=== PATIENT | male | born 1955 | race Caucasian/White ===

== ENCOUNTER 2021-06-15 08:30 | Inpatient (IN) | payer OTHER ==
[~2021-06-15] VITALS: Ht 172.7 cm; Wt 72.2 kg
[~2021-06-15 08:30] MED LIST: ALBU90OI INH; ALPR.25 PO; ALPR.5 PO; ALPR1; ALPR1 PO; AMLO10 PO; Ativan1 MG PO; BENZ100A PO; CEPH500 PO; CYCL10 PO; Crutch1 EACH MISC; Cyclobenzaprine5 MG PO; ENAL5; GUAN1; HYDACE10B; HYDACE5 PO; HYDGUAL120 PO; HYDMOR2 PO; Hydrochloroth12.5 MG PO; IBUHYD PO; IBUP600 PO; IBUP800 PO; LISI20 PO; LISI5 PO; METO100ER; METO100ER PO; METO25ER PO; METO50 PO; METO50ER; MORP30 PO; MORP30ER; MORPHINE SULFATE; MSIR; Naprosyn500 MG PO; OXYACE5T PO; PANT40; PROM25 PO; Prednisone20 MG PO; RXHYDACE PO; RXLORA1 PO; RXOXYACE PO; Sulindac200 MG PO; TRIHYD253A; Toprol Xl25 MG PO; VICODIN; Xanax1 MG PO; Zanaflex4 M1; Zithromax250 MG PO
[2021-06-15 08:45] LABS: Calcium, Ionized (POC) 1.05 mmol/L (1.10-1.46); Chloride (POC) 102 mmol/L (98-108); Glucose (ISTAT POC) 133 mg/dL (70-99); Hemoglobin (POC) 16.7 g/dL (13.5-17.5); Potassium (POC) 4.3 mmol/L (3.5-5.5); Sodium (POC) 137 mmol/L (135-148); Total CO2 (POC) 27 mmol/L (21-32)
[2021-06-15 09:00] LABS: BASOPHILS ABSOLUTE AUTO 0.02 K/mm3 (0.00-0.23); BASOPHILS PERCENT AUTO 0 % (0-2); EOSINOPHILS ABSOLUTE AUTO 0.07 K/mm3 (0.00-0.68); EOSINOPHILS PERCENT AUTO 1 % (0-6); Hemoglobin 17.2 g/dL (13.5-17.5); IMMATURE GRAN ABSOLUTE AUTO 0.02 K/mm3 (0.00-0.10); IMMATURE GRAN PERCENT AUTO 0 % (0-1); LYMPHOCYTES ABSOLUTE AUTO 2.13 K/mm3 (0.84-5.20); LYMPHOCYTES PERCENT AUTO 28 % (21-46); MONOCYTES ABSOLUTE AUTO 0.39 K/mm3 (0.16-1.47); MONOCYTES PERCENT AUTO 5 % (4-13); Mean Corpuscular HGB 31.6 pg (26.0-34.0); Mean Corpuscular HGB Conc 35.8 g/dL (31.5-36.5); Mean Corpuscular Volume 88 fL (80-100); Mean Platelet Volume 9.9 fL (9.1-12.4); NEUTROPHILS ABSOLUTE AUTO 4.92 K/mm3 (1.96-9.15); NEUTROPHILS PERCENT AUTO 65 % (41-73); Platelet Count 286 K/mm3 (150-400); RDW Coefficient Variation 12.5 % (11.7-14.2); RDW Standard Deviation 40.1 fL (35.1-46.3); Red Blood Cell Count 5.44 M/mm3 (4.30-5.90); White Blood Cell Count 7.55 K/mm3 (4.00-11.30)
[2021-06-15 09:35] LABS: Alanine Aminotransfer (ALT/SGP 32 U/L (12-78); Albumin, Blood 3.4 g/dL (3.4-5.0); Albumin/Globulin Ratio 0.8 (0.8-1.8); Alk Phos 122 U/L (50-136); Anion Gap 6 mmol/L (6-16); Aspartate Aminotrans (AST/SGOT 30 U/L (12-37); Bilirubin, Total 0.8 mg/dL (0.1-1.0); Blood Urea Nitrogen 11 mg/dL (8-24); Bun/Creatinine Ratio 11.1 (12.0-20.0); CHOL/HDL RATIO 3.8; CO2, Blood 26 mmol/L (21-32); Calcium, Blood 8.9 mg/dL (8.5-10.1); Chloride, Blood 104 mmol/L (98-108); Cholesterol 186 mg/dL (50-200); Creatinine, Blood 0.99 mg/dL (0.60-1.20); Globulin, Blood 4.5 g/dL (2.2-4.0); Glomerular Filtration Rate >60 (60-); Glucose, Blood 135 mg/dL (70-99); HDL Cholesterol 49 mg/dL (>39); LDL/HDL RATIO 2.3; Low Density Lipoprotein Chol 114 mg/dL (0-110); Potassium, Blood 4.2 mmol/L (3.5-5.5); Sodium, Blood 136 mmol/L (136-145); Total Protein, Blood 7.9 g/dL (6.4-8.2); Triglycerides 114 mg/dL (30-160); Troponin I <0.015 ng/mL (0.000-0.040); Very Low Density Lipoprot Chol 22 mg/dL (6-32)
[2021-06-15 09:38] LABS: Influenza A, PCR NEGATIVE (NEGATIVE); Influenza B, PCR NEGATIVE (NEGATIVE); Resp Syncytial Virus, PCR NEGATIVE (NEGATIVE); SARS-Cov-2 (COVID-19) PCR, MMC NEGATIVE (NEGATIVE)
--- NOTE | 2021-06-15 11:53 | NUR ---
PT ARRIVED TO ICU FROM DIETICIAN AT 1048. RIGHT TR BAND IN PLACE INFLATED TO 12MLS. NO BLEEDING NOTED TO INTERTION SITE. PT DENIES ANY CHEST PAIN OR SOB AT THIS TIME.
--- NOTE | 2021-06-15 12:18 | NUR ---
TR BAND REMOVED WITHOUT COMPLICATION OR BLEEDING
--- NOTE | 2021-06-15 12:28 | NUR ---
PROVIDER NOTIFICATION: Dr. Pitts notified of pt's hypertension. See new orders.
[2021-06-15 13:04] LABS: U Amphetamine Screen Not Detected; U Barbituate Screen Not Detected; U Benzodiazapine Screen Not Detected; U Buprenorphine Screen Not Detected; U Cannabinoids Screen DETECTED; U Cocaine Screen Not Detected; U Methadone Screen Not Detected; U Methamphetamine Screen DETECTED; U Opiates Screen DETECTED; U Oxycodone Screen Not Detected; U Phencyclidine Screen Not Detected; U Propoxyphene Screen Not Detected
--- NOTE | 2021-06-15 17:41 | NUR ---
SHIFT SUMMARY: Pt recovered from PCI well. TR band was discontinued without complication or rebleeding. Pt denies any chest pain or shortness of breath. He does report some ongoing sharp right arm/elbow pain for which he recieved PRN tylenol. No new EKG changes. Pt given lisinopril for hypertension. He is using urinal has stood at bedside independantly. Takeing PO well.
--- NOTE | 2021-06-15 20:00 | NUR ---
ASSUMED CARE OF DONALD, DURING REPORT PT WENT IN TO A 36 BEAT RUN OF [place]. HE DENIED ANY PAIN OR CHANGE IN FEELING. HE WAS STARTLED BY THE PRESENCE OF PEOPLE RUSHING TO HIS ROOM. DEEP AWARE OF THE RUN AND STATED THAT IT WAS TO BE EXPECTED WITH HIS REPERFUSION. PT SLEEPY, CLOSES EYES BRIEFLY WHEN UNDISTURBED. PT WITH NO DRIPS OR LINES AT THIS TIME.
[2021-06-16 03:41] LABS: Hematocrit 43.3 % (37.0-53.0); Hemoglobin 14.9 g/dL (13.5-17.5); Mean Corpuscular HGB 31.2 pg (26.0-34.0); Mean Corpuscular HGB Conc 34.4 g/dL (31.5-36.5); Mean Corpuscular Volume 91 fL (80-100); Mean Platelet Volume 9.6 fL (9.1-12.4); Platelet Count 241 K/mm3 (150-400); RDW Coefficient Variation 12.7 % (11.7-14.2); RDW Standard Deviation 42.1 fL (35.1-46.3); Red Blood Cell Count 4.78 M/mm3 (4.30-5.90); White Blood Cell Count 8.53 K/mm3 (4.00-11.30)
[2021-06-16 04:17] LABS: Anion Gap 8 mmol/L (6-16); Blood Urea Nitrogen 16 mg/dL (8-24); Bun/Creatinine Ratio 16.8 (12.0-20.0); CO2, Blood 24 mmol/L (21-32); Calcium, Blood 8.1 mg/dL (8.5-10.1); Chloride, Blood 105 mmol/L (98-108); Creatinine, Blood 0.95 mg/dL (0.60-1.20); Glomerular Filtration Rate >60 (60-); Glucose, Blood 108 mg/dL (70-99); Potassium, Blood 3.8 mmol/L (3.5-5.5); Sodium, Blood 137 mmol/L (136-145)
--- NOTE | 2021-06-16 05:37 | NUR ---
DONALD HAS BEEN WITHOUT ANY COMPLAINTS, HE HAS BEEN SLEEPING ON AND OFF T/O THE NIGHT. HE AWAKENS WHEN SPOKEN TO. OTHERWISE REMAINS STABLE, HEART RATE HI 50'S TO 60'S, SBP 120-140'S, SATS 97% ON ROOM AIR. WILL CONTINUE TO MONITOR AND REPORT WHEN ABLE.
--- NOTE | 2021-06-16 07:15 | NUR ---
Assumed care of pt at 0700 with Corinne LIANG. Pt alert, answers questions, follows commands, verbalizes needs. Pleasant and cooperative with care. HR 55-65, sinus. BP stable. Right TR site, free of hematoma. Color, sensation, pulses, capillary refill equal BUE.
[2021-06-16 10:01] LABS: Creatine Kinase MB Index 10.4 (0.0-4.0)
[2021-06-16 10:11] LABS: Troponin I 31.4 ng/mL (0.000-0.040)
--- NOTE | 2021-06-16 12:19 | NUR ---
DR TRUJILLO IN TO SEE PATIENT Provider states plan for pt to transfer as PCU status today and potential for discharge tomorrow. Provider inquires about pt's social history and he states 1/2 smoker per day and marijuana uses. Denies methamphetamine use and when asked, states he hasn't used methamphetamine in over a year. Provider discusses tox screen results with patient and educates pt about discharge plan and dicharge meds - including anticoagulants. Pt states understanding.
--- NOTE | 2021-06-16 14:21 | NUR ---
Patient transfer to PCU 20. Report given to Tia RN. Pt transporting via wheelchair accompanied by SOFIA Sauer. Chart, meds, and belongings transferred with patient.
--- NOTE | 2021-06-16 15:00 | NUR ---
Josephine of care from ICU. No changes noted since AM assessment. Pt in no apparent distress at this time. Will continue to monitor.
[2021-06-16 15:51] LABS: Creatine Kinase MB 33.5 ng/mL (0.0-3.6); Creatine Kinase MB Index 7.4 (0.0-4.0)
[2021-06-16 15:57] LABS: Troponin I 21.8 ng/mL (0.000-0.040)
[2021-06-16 21:43] LABS: Creatine Kinase MB 19.8 ng/mL (0.0-3.6)
[2021-06-16 21:48] LABS: Troponin I 20.1 ng/mL (0.000-0.040)
--- NOTE | 2021-06-17 05:45 | NUR ---
SHIFT SUMMARY ASSUMED CARE OF PT AT 1900. PT IS A/OX4. HEART SOUNDS REGULAR. LUNG SOUNDS CLEAR. PT USE URINAL T/O THE NIGHT. URINE IS PÉREZ BUT CLEAR. PT HAD NO NEW COMPLAINTS. SLEPT T/O THE NIGHT. CALL LIGHT IN REACH, BED IN LOWEST POSITION, BED ALARM ON.
[2021-06-17] MEDS ORDERED: ASPI81CH PO (07:48)
[2021-06-17] MEDS ORDERED: ATOR40TA PO (07:48)
[2021-06-17] MEDS ORDERED: CLOP75 PO (07:48)
[2021-06-17] MEDS ORDERED: METO25 PO (07:49)
[2021-06-17] MEDS ORDERED: Prinivil10 MG PO (07:49)
--- NOTE | 2021-06-17 10:16 | NUR ---
DISCHARGE HOME PT A&O X4. VSS. MD LEONE TO BEDSIDE W/ ORDERS FOR DISCHARGE. DISCHARGE INSTRUCTIONS REVIEWED W/ PT. PT TAKEN OUT BY PCT IN WHEELCHAIR @ APPROX 1000.
== END 2021-06-17 10:00 | disposition home or self-care (01) | DRG 247 ==
LOC: ER 08:30 → ICUW 08:52 → ICUE 10:44 → PCU 06-16 14:25
PROVIDERS: Emergency Medicine; ADMIT Internal Medicine Interventional Cardiology
PROC: 4A023N7 Measurement of Cardiac Sampling and Pressure, Left Heart, Percutaneous Approach (ICD-10-PCS; principal; 2021-06-15)
PROC: 027034Z Dilation of Coronary Artery, One Artery with Drug-eluting Intraluminal Device, Percutaneous Approach (ICD-10-PCS; 2021-06-15)
PROC: B2111ZZ Fluoroscopy of Multiple Coronary Arteries using Low Osmolar Contrast (ICD-10-PCS; 2021-06-15)
DX: I21.19 ST elevation (STEMI) myocardial infarction involving other coronary artery of inferior wall (principal); F19.20 Other psychoactive substance dependence, uncomplicated; Z20.822 Contact with and (suspected) exposure to COVID-19; I25.10 Atherosclerotic heart disease of native coronary artery without angina pectoris; I10 Essential (primary) hypertension; G89.4 Chronic pain syndrome; G40.909 Epilepsy, unspecified, not intractable, without status epilepticus; F17.210 Nicotine dependence, cigarettes, uncomplicated; I49.8 Other specified cardiac arrhythmias; E78.5 Hyperlipidemia, unspecified; Z79.899 Other long term (current) drug therapy; Z88.0 Allergy status to penicillin; Z88.8 Allergy status to other drugs, medicaments and biological substances; Z88.5 Allergy status to narcotic agent
CPT/HCPCS: 0241U; 36415; 76937; 80047; 80048; 80053; 80061; 82550; 82553; 84484; 85014; 85025; 85027; 85347; 86850; 86900; 86901; 92920; 93005; 93010; 93306; 93454; 96374; 99152; 99153; 99285-25; A9270; C1725; C1769; C1874; C1887; C1894; C9600; C9606; J0282; J0360; J0461; J1644; J2250; J3010; J3246; J3475; J7030; J7040; J7050; Q9967

== ENCOUNTER 2025-05-20 15:15 | Emergency (ER) | payer OTHER ==
[~2025-05-20] VITALS: Ht 172.7 cm; Wt 81.2 kg
[~2025-05-20 15:15] MED LIST changes: +ASPI81CH PO; +ATOR40TA PO; +CLOP75 PO; +METO25 PO; +Prinivil10 MG PO
[2025-05-20 15:39] LABS: BASOPHILS ABSOLUTE AUTO 0.03 K/mm3 (0.00-0.23); BASOPHILS PERCENT AUTO 0 % (0-2); EOSINOPHILS ABSOLUTE AUTO 0.15 K/mm3 (0.00-0.68); EOSINOPHILS PERCENT AUTO 2 % (0-6); Hematocrit 46.8 % (37.0-53.0); Hemoglobin 16.3 g/dL (13.5-17.5); IMMATURE GRAN ABSOLUTE AUTO 0.01 K/mm3 (0.00-0.10); IMMATURE GRAN PERCENT AUTO 0 % (0-1); LYMPHOCYTES ABSOLUTE AUTO 1.89 K/mm3 (0.84-5.20); LYMPHOCYTES PERCENT AUTO 25 % (21-46); MONOCYTES ABSOLUTE AUTO 0.54 K/mm3 (0.16-1.47); MONOCYTES PERCENT AUTO 7 % (4-13); Mean Corpuscular HGB Conc 34.8 g/dL (31.5-36.5); Mean Corpuscular Volume 90 fL (80-100); NEUTROPHILS ABSOLUTE AUTO 5.09 K/mm3 (1.96-9.15); NEUTROPHILS PERCENT AUTO 66 % (41-73); NRBC ABSOLUTE 0.00 K/mm3 (0.00-0.02); NRBC Auto 0.0 /100 WBC (0.0-0.2); Platelet Count 232 K/mm3 (150-400); RDW Coefficient Variation 12.7 % (11.7-14.2); RDW Standard Deviation 42.1 fL (35.1-46.3)
[2025-05-20 16:30] LABS: Alanine Aminotransfer (ALT/SGP 49.0 U/L (12-78); Albumin, Blood 3.4 g/dL (3.4-5.0); Albumin/Globulin Ratio 0.8 (0.8-1.8); Anion Gap 9.0 mmol/L (3-11); Aspartate Aminotrans (AST/SGOT 29.0 U/L (12-37); Bilirubin, Total 0.5 mg/dL (0.1-1.0); Blood Urea Nitrogen 17.0 mg/dL (8-24); CO2, Blood 25.0 mmol/L (21-32); Calcium, Blood 9.0 mg/dL (8.5-10.1); Chloride, Blood 105.0 mmol/L (98-108); Creatinine, Blood 0.87 mg/dL (0.60-1.20); Globulin, Blood 4.3 g/dL (2.2-4.0); Glucose, Blood 129.0 mg/dL (70-99); Potassium, Blood 3.8 mmol/L (3.5-5.5); Sodium, Blood 135.0 mmol/L (136-145); Total Protein, Blood 7.7 g/dL (6.4-8.2)
[2025-05-20 17:22] VITALS: BP 148/82
[2025-05-20] MEDS ORDERED: MOTION RELIEF25 MG PO (17:33)
== END 2025-05-20 18:02 | disposition home or self-care (01) ==
LOC: ER 15:15
PROVIDERS: Emergency Medicine
DX: H81.399 Other peripheral vertigo, unspecified ear (principal); Z88.0 Allergy status to penicillin; I10 Essential (primary) hypertension; Z79.899 Other long term (current) drug therapy; F17.210 Nicotine dependence, cigarettes, uncomplicated
CPT/HCPCS: 80053; 85025; 93005; 93010; 99284-25; A9270